=== PATIENT | male | born 1950 | race Caucasian/White ===

== ENCOUNTER 2017-02-02 14:18 | Inpatient (IN) | payer OTHER ==
--- NOTE | ~2017-02-02 | CN ---
Consultation Report [facility] [address] [place]. [address] NAME: RUBIO GONZALEZ : 48 STATUS : ADM Arcadio PAT#: [id number] AGE: 66 ADM/REG DATE : 02/02/17 MR#: [id number] REPORT SERV DATE: 02/03/17 DICTATED BY: TAHIR WALTER DATE: 02/03/17 REPORT STATUS : Draft TRANSCRIBED BY: MODL DATE: 02/03/17 SURGICAL CONSULTATION DATE OF CONSULTATION: 02/03/2017 REASON FOR CONSULTATION: Perforated sigmoid diverticulitis. HISTORY OF PRESENT ILLNESS: This pleasant 66-year-old gentleman presents with a several week history of left lower quadrant abdominal pain. He was doing well on 02/01/2017 and was working putting up hay. That night, he had nausea and distention of the abdomen with fever and chills. He denied any change in bowel or bladder habits, weight loss, or other constitutional symptoms. He denies any change in the caliber of stools or bright red blood per rectum. He reports having a colonoscopy last year that revealed no evidence of any masses or polyps. He is followed by Katia Cardona, a nurse practitioner in [place], [place]. He has had two previous episodes of diverticulitis. He was evaluated in the emergency department and noted to have no leukocytosis. He had acute sigmoid colon diverticulitis with a small contained walled-off perforation adjacent to the sigmoid and bladder wall measuring 1.7 x 2.8 cm. He also had bilateral nonobstructing renal stones. There was no evidence of free air. There is pericolonic fat stranding. He was admitted for IV antibiotics and bowel rest. He has no acute voluntary guarding or peritoneal signs on exam. We have discussed an elective resection in light of his third episode of diverticulitis. This with complication to include contained perforation close to the dome of the bladder. PAST MEDICAL HISTORY: Hypertension and renal stones. PAST SURGICAL HISTORY: Right inguinal hernia and knee replacement. ALLERGIES: NO KNOWN DRUG OR LATEX ALLERGIES. SOCIAL HISTORY: The patient denies alcohol or tobacco usage. 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 FAMILY HISTORY: Positive for brain cancer. No colon cancer or polyps. MEDICATIONS: Please see hospital chart. REVIEW OF SYSTEMS: No headache, blurred vision, dizziness, chest pain, shortness of breath, cough, dyspnea on exertion, syncope, palpitations, jaundice, itching, bright red blood per rectum, or melena. PHYSICAL EXAMINATION: GENERAL: Well-developed male, in no apparent distress. NECK: Supple. No adenopathy. Consultation Report [address] [place]. [address] NAME: RUBIO GONZALEZ : 48 STATUS : ADM Arcadio PAT#: [id number] AGE: 66 ADM/REG DATE : 02/02/17 MR#: [id number] REPORT SERV DATE: 02/03/17 DICTATED BY: TAHIR WALTER DATE: 02/03/17 REPORT STATUS : Draft TRANSCRIBED BY: MODL DATE: 02/03/17 CARDIOVASCULAR: Regular rate and rhythm. RESPIRATORY: Clear to auscultation. ABDOMEN: Soft, nondistended, nontender. The patient has some left lower quadrant tenderness with palpation without rebound, guarding, or mass. BACK: No CVA tenderness. EXTREMITIES: No clubbing, cyanosis, edema, or jaundice. LABORATORY DATA: White blood cell count 9200 on admission. UA was negative for leukocyte esterase, only 2 white blood cells. ASSESSMENT: 1. Perforated sigmoid diverticulitis with small contained abscess (recurrent). 2. Hypertension. 3. Nonobstructing bilateral renal stones. PLAN: At this time, I agree with continued IV antibiotics and bowel rest. After review of the images, I do not think that the CT-guided image aspiration will be beneficial. This may communicate with the bowel. I have discussed continued antibiotic IV therapy and bowel rest with elective segmental resection with the patient who is in agreement. We will continue to follow with you. /CASEY Tahir Walter M.D. / [id number] CC: Asuncion Mcfarland N.P.
--- NOTE | ~2017-02-02 | DS ---
Discharge Summary [place] [id number] [place]. [address] NAME: RUBIO GONZALEZ : 48 STATUS : DIS IN PAT#: [id number] AGE: 66 ADM/REG DATE : 02/02/17 MR#: [id number] REPORT SERV DATE: 02/06/17 DICTATED BY: JAQUELIN CRANE DATE: 02/06/17 REPORT STATUS : Draft TRANSCRIBED BY: MODL DATE: 02/06/17 ADMISSION DATE: 02/02/2017 DISCHARGE DATE: 02/06/2017 CONDITION ON DISCHARGE: Stable. DISPOSITION: Discharged to home. ADVICE ON DISCHARGE: To follow up with Dr. Thomas as scheduled within the next few weeks. DIAGNOSES ON DISCHARGE: Acute diverticular abscess, a small contained abscess of about 2 to 2.4 cm large in the pelvic area which is resolving, with IV antibiotics and p.o. antibiotics will be continued. At this time, the patient has not required any surgery for abscess drainage itself so far. However, at some point in the future as an elective procedure, the patient may require partial sigmoid colon resection for the diverticular abscess itself, this is up to Dr. Thomas. BRIEF HOSPITAL COURSE: The patient is a very pleasant 66-year-old gentleman who was admitted with abdominal pain, and signs and symptoms as outlined in history and physical exam. He also had fever upon admission and CT scan of the abdomen showed a small contained diverticular abscess which may have been responsible for the symptoms. The patient was started on IV antibiotics, IV fluids, and kept n.p.o. before advancing to full liquid diet and then to a high-fiber diet. This was during the course of hospitalization over the course of several days. Dr. Thomas, general surgeon, evaluated the patient and at this time, felt that he required no surgery emergently. However, he may require an elective partial sigmoid resection for diverticular abscess. For now, the patient is pain-free and is symptom free and is being discharged home on continued antibiotics which he will be taking for the next ten days. MEDICATIONS: New medications upon discharge Include Augmentin 875 mg p.o. b.i.d. for the next ten more days and Florastor capsule one p.o. b.i.d. for the next ten more days either a prescription has been given. The patient is advised a high-fiber diet and activity is advised. LABORATORY DATA: Labs that I have upon discharge on this patient that are most recent include the following: CBC on 02/06/2017 shows WBC of 6.5, hemoglobin 13.8, hematocrit 38.9, and platelet count of 254. Electrolyte profile shows normal electrolytes, BUN, and creatinine. The patient will resume all his home medications that he takes at home at this time and these will include Coreg 6.25 mg p.o. b.i.d., Mobic 15 mg p.o. daily, Prilosec 20 mg p.o. daily, lisinopril 20 mg p.o. b.i.d., temazepam 30 mg p.o. at bedtime, multivitamins and minerals, Tylenol, AZO, Nasacort nasal spray, and Artificial Tears. I have spent about 35 to 40 minutes in coordinating discharge care of this patient including [id number] encounter and summarizing this discharge. Discharge Summary [address] [address] NAME: RUBIO GONZALEZ : 48 STATUS : DIS IN PAT#: [id number] AGE: 66 ADM/REG DATE : 02/02/17 MR#: [id number] REPORT SERV DATE: 02/06/17 DICTATED BY: JAQUELIN CRANE DATE: 02/06/17 REPORT STATUS : Draft TRANSCRIBED BY: CASEY DATE: 02/06/17 DICTATED BY: Asuncion Ellis/CASEY Jaquelin Crane M.D. / [id number] CC: Asuncion Ellis N.P.
--- NOTE | ~2017-02-02 | HP ---
History And Physical [place] [address] [facility] [place]. [address] NAME: RUBIO GONZALEZ : 48 STATUS : ADM Arcadio PAT#: [id number] AGE: 66 ADM/REG DATE : 02/02/17 MR#: [id number] REPORT SERV DATE: 02/02/17 DICTATED BY: CAROLIN SIERRA DATE: 02/02/17 REPORT STATUS : Draft TRANSCRIBED BY: MODL DATE: 02/02/17 DATE OF ADMISSION: 02/02/2017 HISTORY OF PRESENT ILLNESS: This is very pleasant 66-year-old male, who presented to [facility] because of the left lower quadrant abdominal pain on and off for the last two weeks, he said especially when he is eating food, as well as some nausea and gaseous distention of the abdomen. He also had some painful urination. He denies any chest pain. He had fever at home, he did not measure, but yesterday, he was feverish. He denies any rash. No shortness of breath. REVIEW OF SYSTEMS: All 14-point review of systems done and negative, except what is stated in the history of present illness. PAST MEDICAL HISTORY: Known for history of hypertension, history of kidney stone. He denies any history of strokes. No heart attacks. No diabetes. PAST SURGICAL HISTORY: Includes hernia surgery by Dr. Thomas and history of knee replacement. ALLERGIES: HE IS NOT ALLERGIC TO ANY MEDICATIONS. SOCIAL HISTORY: He used to smoke long time ago, less than a pack a day. No excessive alcohol. No recreational drug use. He was a builder, now he is semi-retired. FAMILY HISTORY: Mother at age of 90 of old age. Father from brain tumor at a younger age. HOME MEDICATIONS: Include Tylenol 1000 mg p.o. daily p.r.n., artificial tears daily, carvedilol 6.25 p.o. b.i.d., lisinopril 20 mg daily, meloxicam 15 mg p.o. daily, multivitamins daily, omeprazole 20 mg daily, Azo daily p.r.n. for painful urination, Restoril 30 mg daily, and triamcinolone nasal spray daily. PHYSICAL EXAMINATION: GENERAL: Well-nourished, well-developed male, not in acute distress, resting quietly. VITAL SIGNS: Blood pressure 139/85, temperature 97.5, heart rate 85, respirations 16, oxygen saturation 97% on room air. HEENT: Head, atraumatic and normocephalic. Conjunctivae clear. Pupils are equal and reactive to light and accommodation. Extraocular muscles are intact. NECK: Supple. Trachea is midline. No supraclavicular or cervical lymphadenopathy. LUNGS: Clear to auscultation bilaterally. Normal respiratory effort. CARDIOVASCULAR SYSTEM: Regular rate and rhythm. Point of maximal impulse not displaced. ABDOMEN: Soft. There is tenderness to palpation in the left lower quadrant. There is no guarding, no rebound. Completely benign abdominal examination. Positive normoactive bowel sounds. EXTREMITIES: No clubbing, cyanosis, or edema. History And Physical [address] [address] NAME: RUBIO GONZALEZ : 48 STATUS : ADM Arcadio PAT#: [id number] AGE: 66 ADM/REG DATE : 02/02/17 MR#: [id number] REPORT SERV DATE: 02/02/17 DICTATED BY: CAROLIN SIERRA DATE: 02/02/17 REPORT STATUS : Draft TRANSCRIBED BY: CASEY DATE: 02/02/17 SKIN: Normal color and turgor. NEUROLOGIC: He is awake, alert and oriented in time, place, and person. Muscle strength is 5/5 bilaterally on the upper and lower extremities. LABORATORY RESULTS: Sodium 137, potassium 4.3, chloride 102, carbon dioxide 15, BUN 15, creatinine 1.07, blood sugar 145, total bilirubin 0.19, lipase 168, ALT 25, AST 15. Lactic acid level is 1. White count 9.2, hemoglobin 13.4, hematocrit 39, platelet count 225. UA showed negative leukocyte esterase, positive nitrites, only [address] of the abdomen and pelvis showed bilateral nonobstructing renal parenchymal calculi; acute sigmoid diverticulitis; at the sigmoid colon, diffuse diverticulosis is seen with pericolonic inflammatory fat stranding; a small contained walled-off perforation is seen adjacent to the sigmoid colon, measuring 1.7 to 2.8 cm; there is no free fluid; there is no free air present. ASSESSMENT AND PLAN: 1. This is a very pleasant 66-year-old male with a past medical history of hypertension, presented with left lower quadrant abdominal pain and some gaseous discomfort in the belly and was found to have acute diverticulitis with a small contained perforation. The patient reported that he had two episodes of diverticulitis in the past, but it healed without any intervention. The patient was evaluated by emergency room nurse practitioner, Maddie Lynn and she called the patient's surgeon, Dr. Thomas; he recommended hospitalist to admit and he will see the patient in consultation. I spoke personally with Dr. Tahir Thomas, and he recommended the patient to be n.p.o. and to be started on intravenous antibiotics, Levaquin and Flagyl, intravenously as well as we will put the patient on Protonix IV daily, and we will put the patient on intravenous fluids and we will monitor him closely, and Dr. Thomas told me that he will see the patient in consultation. 2. Hypertension, currently under control. We will give the patient also reasonable pain control and we will monitor him closely, and he will be under observation right now and I will follow up on this patient as well. MG/MODL Carolin Sierra M.D. / [id number] CC: Asuncion Mcfarland Jasmine Denise
[2017-02-02 12:25] LABS: ASCORBIC ACID (UR NOT ORDER) NEG (NEG); BILIRUBIN, URINE NEGATIVE (NEG); ER URINALYSIS TAT 0 Hrs 10 Mins; KETONE, URINE NEGATIVE (NEG); LEUKOCYTE ESTERASE(NOT OR NEG (NEG); NITRITE (URINE) POS (NEG); WBC (NOT ORDERED) (RFLEX) 2 (0-5)
[2017-02-02 13:00] LABS: BASOPHILS 0.2 %; BASOPHILS ABSOLUTE 0.02 10/3/uL (0.0-0.16); EOSINOPHILS 3.1 %; EOSINOPHILS ABSOLUTE 0.28 10/3/uL (0.0-0.53); ER CBC TAT 0 Hrs 10 Mins; HEMOGLOBIN 13.4 g/dL (13.6-17.8); IMMATURE GRANULOCYTES 0.2 %; IMMATURE GRANULOCYTES ABSOLUTE 0.02 10/3/uL (0.0-0.11); LYMPHOCYTES 12.2 %; LYMPHOCYTES ABSOLUTE 1.12 10/3/uL (0.67-4.30); MANUAL DIFF NO %; MEAN CORPUS HGB CONC 34.4 g/dL (32.0-36.0); MEAN CORPUSCULAR HEMOGLOB 29.5 pg (26.0-34.0); MEAN CORPUSCULAR VOLUME 85.9 fL (80-100); MEAN PLATELET VOLUME 10.1 fL (9.2-13.0); MONOCYTES ABSOLUTE 0.73 10/3/uL (0.21-1.20); NEUTROPHILS 76.3 %; NEUTROPHILS ABSOLUTE 6.99 10/3/uL (2.02-8.40); PLATELET COUNT 225 10/3/uL (150-400); RBC DISTRIBUTION WIDTH 12.6 % (12.0-16.0); RED CELL COUNT 4.54 10/6/uL (4.7-6.1); WHITE BLOOD CELLS 9.2 10/3/uL (4.5-10.5)
[2017-02-02 13:10] LABS: A/G RATIO 0.9 (0.7-1.9); ALBUMIN 3.4 G/DL (3.5-5.0); ALKALINE PHOSPHATASE 85 U/L (45-117); BUN (BLOOD UREA NITROGEN) 15 MG/DL (6-23); CHLORIDE, SERUM 102 MMOL/L (96-112); CO2 (CARBON DIOXIDE) 30 MMOL/L (24-34); CREATININE 1.07 MG/DL (0.70-1.30); GFR AFRICAN AMERICAN 83 ML/MIN (>=60); GFR NON AFRICAN AMERICAN 71 ML/MIN (>=60); GLUCOSE, SERUM 145 MG/DL (60-99); POTASSIUM, SERUM 4.3 MMOL/L (3.5-5.3); SGOT(AST) 15 U/L (5-40); SGPT(ALT) 25 U/L (5-65); SODIUM, SERUM 137 MMOL/L (135-148); TOTAL PROTEIN 7.4 G/DL (6.0-8.5)
[2017-02-02 13:33] LABS: PROCALCITONIN 0.19 ng/mL (<0.5)
[~2017-02-02 14:18] MED LIST: BYSTOLIC10 MG PO; CIP5 PO; FISH-EPA1000 MG PO; GLUCPH PO; MOBIC15 MG PO; MULTIVITAMI1 PO; PRILO PO; PRIN10 PO; RESTORIL30 MG PO; VOLTXR100 PO
[2017-02-02] MEDS ORDERED: RESTORIL30 MG PO (15:13)
[2017-02-02] MEDS ORDERED: PRIN20 PO (15:13)
[2017-02-02] MEDS ORDERED: MOBIC15 MG PO (15:13)
[2017-02-02] MEDS ORDERED: COREG6 PO (15:13)
[2017-02-02] MEDS ORDERED: PRILOSEC OTC20 MG PO (15:13)
[2017-02-02] MEDS ORDERED: NASACORTAQ NAS (15:14)
[2017-02-02] MEDS ORDERED: ACET500CAP PO (15:14)
[2017-02-02] MEDS ORDERED: CENTRUM PO (15:14)
[2017-02-02] MEDS ORDERED: AZO-STANDARD95 MG PO (15:14)
[2017-02-02] MEDS ORDERED: TEARS PLUS OPH (15:15)
[2017-02-03 05:23] LABS: BASOPHILS 0.3 %; BASOPHILS ABSOLUTE 0.02 10/3/uL (0.0-0.16); EOSINOPHILS 4.2 %; EOSINOPHILS ABSOLUTE 0.29 10/3/uL (0.0-0.53); HEMATOCRIT 38.6 % (40.0-51.0); IMMATURE GRANULOCYTES 0.3 %; IMMATURE GRANULOCYTES ABSOLUTE 0.02 10/3/uL (0.0-0.11); LYMPHOCYTES 15.9 %; MEAN CORPUS HGB CONC 33.7 g/dL (32.0-36.0); MEAN CORPUSCULAR VOLUME 86.2 fL (80-100); MEAN PLATELET VOLUME 9.7 fL (9.2-13.0); MONOCYTES 8.2 %; MONOCYTES ABSOLUTE 0.57 10/3/uL (0.21-1.20); NEUTROPHILS 71.1 %; NEUTROPHILS ABSOLUTE 4.92 10/3/uL (2.02-8.40); PLATELET COUNT 217 10/3/uL (150-400); RBC DISTRIBUTION WIDTH 12.4 % (12.0-16.0); RED CELL COUNT 4.48 10/6/uL (4.7-6.1); WHITE BLOOD CELLS 6.9 10/3/uL (4.5-10.5)
[2017-02-03 05:36] LABS: BUN (BLOOD UREA NITROGEN) 12 MG/DL (6-23); CALCIUM, SERUM 8.8 MG/DL (8.5-10.4); CHLORIDE, SERUM 104 MMOL/L (96-112); CREATININE 1.03 MG/DL (0.70-1.30); GFR AFRICAN AMERICAN 87 ML/MIN (>=60); GFR NON AFRICAN AMERICAN 75 ML/MIN (>=60); POTASSIUM, SERUM 4.1 MMOL/L (3.5-5.3); SODIUM, SERUM 137 MMOL/L (135-148)
[2017-02-03 05:44] LABS: MANUAL DIFF NO %
[2017-02-03 05:46] LABS: CO2 (CARBON DIOXIDE) 25 MMOL/L (24-34); GLUCOSE, SERUM 100 MG/DL (60-99)
[2017-02-04 06:36] LABS: BASOPHILS 0.1 %; BASOPHILS ABSOLUTE 0.01 10/3/uL (0.0-0.16); EOSINOPHILS 2.5 %; EOSINOPHILS ABSOLUTE 0.19 10/3/uL (0.0-0.53); HEMOGLOBIN 13.2 g/dL (13.6-17.8); IMMATURE GRANULOCYTES 0.1 %; IMMATURE GRANULOCYTES ABSOLUTE 0.01 10/3/uL (0.0-0.11); LYMPHOCYTES 12.3 %; LYMPHOCYTES ABSOLUTE 0.92 10/3/uL (0.67-4.30); MANUAL DIFF NO %; MEAN CORPUS HGB CONC 34.7 g/dL (32.0-36.0); MEAN CORPUSCULAR HEMOGLOB 29.6 pg (26.0-34.0); MEAN CORPUSCULAR VOLUME 85.2 fL (80-100); MEAN PLATELET VOLUME 9.8 fL (9.2-13.0); MONOCYTES 7.6 %; MONOCYTES ABSOLUTE 0.57 10/3/uL (0.21-1.20); NEUTROPHILS 77.4 %; NEUTROPHILS ABSOLUTE 5.77 10/3/uL (2.02-8.40); PLATELET COUNT 242 10/3/uL (150-400); RBC DISTRIBUTION WIDTH 12.2 % (12.0-16.0); RED CELL COUNT 4.46 10/6/uL (4.7-6.1); WHITE BLOOD CELLS 7.5 10/3/uL (4.5-10.5)
[2017-02-04 06:47] LABS: BUN (BLOOD UREA NITROGEN) 12 MG/DL (6-23); CALCIUM, SERUM 9.1 MG/DL (8.5-10.4); CHLORIDE, SERUM 103 MMOL/L (96-112); CO2 (CARBON DIOXIDE) 25 MMOL/L (24-34); CREATININE 0.99 MG/DL (0.70-1.30); GFR AFRICAN AMERICAN 91 ML/MIN (>=60); GFR NON AFRICAN AMERICAN 78 ML/MIN (>=60); GLUCOSE, SERUM 118 MG/DL (60-99); POTASSIUM, SERUM 3.7 MMOL/L (3.5-5.3); SODIUM, SERUM 135 MMOL/L (135-148)
[2017-02-05 06:27] LABS: BASOPHILS 0.5 %; BASOPHILS ABSOLUTE 0.03 10/3/uL (0.0-0.16); EOSINOPHILS 2.9 %; EOSINOPHILS ABSOLUTE 0.18 10/3/uL (0.0-0.53); HEMATOCRIT 38.9 % (40.0-51.0); HEMOGLOBIN 13.5 g/dL (13.6-17.8); IMMATURE GRANULOCYTES 0.5 %; IMMATURE GRANULOCYTES ABSOLUTE 0.03 10/3/uL (0.0-0.11); LYMPHOCYTES 15.6 %; LYMPHOCYTES ABSOLUTE 0.98 10/3/uL (0.67-4.30); MANUAL DIFF NO %; MEAN CORPUS HGB CONC 34.7 g/dL (32.0-36.0); MEAN CORPUSCULAR HEMOGLOB 29.8 pg (26.0-34.0); MEAN CORPUSCULAR VOLUME 85.9 fL (80-100); MEAN PLATELET VOLUME 9.6 fL (9.2-13.0); MONOCYTES 11.3 %; MONOCYTES ABSOLUTE 0.71 10/3/uL (0.21-1.20); NEUTROPHILS 69.2 %; NEUTROPHILS ABSOLUTE 4.34 10/3/uL (2.02-8.40); PLATELET COUNT 246 10/3/uL (150-400); RBC DISTRIBUTION WIDTH 12.4 % (12.0-16.0); RED CELL COUNT 4.53 10/6/uL (4.7-6.1); WHITE BLOOD CELLS 6.3 10/3/uL (4.5-10.5)
[2017-02-05 06:40] LABS: BUN (BLOOD UREA NITROGEN) 11 MG/DL (6-23); CALCIUM, SERUM 9.1 MG/DL (8.5-10.4); CHLORIDE, SERUM 103 MMOL/L (96-112); CO2 (CARBON DIOXIDE) 24 MMOL/L (24-34); CREATININE 1.14 MG/DL (0.70-1.30); GFR AFRICAN AMERICAN 77 ML/MIN (>=60); GFR NON AFRICAN AMERICAN 66 ML/MIN (>=60); GLUCOSE, SERUM 120 MG/DL (60-99); POTASSIUM, SERUM 3.9 MMOL/L (3.5-5.3); SODIUM, SERUM 137 MMOL/L (135-148)
[2017-02-06 05:47] LABS: BASOPHILS 0.5 %; BASOPHILS ABSOLUTE 0.03 10/3/uL (0.0-0.16); EOSINOPHILS 3.3 %; EOSINOPHILS ABSOLUTE 0.21 10/3/uL (0.0-0.53); HEMATOCRIT 38.9 % (40.0-51.0); HEMOGLOBIN 13.8 g/dL (13.6-17.8); IMMATURE GRANULOCYTES 0.3 %; IMMATURE GRANULOCYTES ABSOLUTE 0.02 10/3/uL (0.0-0.11); LYMPHOCYTES 16.4 %; LYMPHOCYTES ABSOLUTE 1.06 10/3/uL (0.67-4.30); MEAN CORPUS HGB CONC 35.5 g/dL (32.0-36.0); MEAN CORPUSCULAR HEMOGLOB 30.2 pg (26.0-34.0); MEAN CORPUSCULAR VOLUME 85.1 fL (80-100); MEAN PLATELET VOLUME 9.7 fL (9.2-13.0); MONOCYTES 8.5 %; MONOCYTES ABSOLUTE 0.55 10/3/uL (0.21-1.20); NEUTROPHILS ABSOLUTE 4.59 10/3/uL (2.02-8.40); PLATELET COUNT 254 10/3/uL (150-400); RBC DISTRIBUTION WIDTH 12.2 % (12.0-16.0); RED CELL COUNT 4.57 10/6/uL (4.7-6.1); WHITE BLOOD CELLS 6.5 10/3/uL (4.5-10.5)
[2017-02-06 05:52] LABS: MANUAL DIFF NO %
[2017-02-06 06:08] LABS: BUN (BLOOD UREA NITROGEN) 10 MG/DL (6-23); CALCIUM, SERUM 9.2 MG/DL (8.5-10.4); CHLORIDE, SERUM 102 MMOL/L (96-112); CO2 (CARBON DIOXIDE) 27 MMOL/L (24-34); CREATININE 1.12 MG/DL (0.70-1.30); GFR AFRICAN AMERICAN 78 ML/MIN (>=60); GFR NON AFRICAN AMERICAN 68 ML/MIN (>=60); GLUCOSE, SERUM 110 MG/DL (60-99); POTASSIUM, SERUM 3.8 MMOL/L (3.5-5.3); SODIUM, SERUM 135 MMOL/L (135-148)
[2017-02-06] MEDS ORDERED: FLORASTOR250 MG PO (14:09)
[2017-02-06] MEDS ORDERED: AUG875 PO (14:09)
== END 2017-02-06 14:50 | disposition home or self-care (01) | DRG 392 ==
LOC: ER 14:18 → 5SO 15:26
PROVIDERS: Emergency Medicine; Hospitalist; Nurse Practitioner; Surgery
DX: K57.20 Diverticulitis of large intestine with perforation and abscess without bleeding (principal); I10 Essential (primary) hypertension; Z87.442 Personal history of urinary calculi; N20.0 Calculus of kidney; Z79.899 Other long term (current) drug therapy
CPT/HCPCS: 74176; 80048; 80053; 81001; 83605; 83690; 84145; 85025; 87040; 96365; 96368; 96375; 99285; A9270-GY; C9113; J0360; J1956; J2405